=== PATIENT | male | born 1970 | race Caucasian/White ===

== ENCOUNTER 2017-04-14 04:34 | Emergency (ER) | payer SELFPAY ==
[2017-04-14 04:45] VITALS: BP 131/69; PULSE 137; RESP 18; TEMP 97.8; O2SAT 97
[2017-04-14] MEDS ORDERED: TDAP Vaccine 0.5 mL Syr IM ONE (04:57)
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
== END 2017-04-14 06:15 ==
LOC: H.ER 04:34
DX: S61.214A Laceration without foreign body of right ring finger without damage to nail, initial encounter (principal); T14.8 Other injury of unspecified body region; Y04.1XXA Assault by human bite, initial encounter; Y92.89 Other specified places as the place of occurrence of the external cause

== ENCOUNTER 2017-04-27 18:38 | Emergency (ER) | payer SELFPAY ==
[2017-04-27 18:49] VITALS: BP 127/76; PULSE 86; RESP 18; TEMP 98.4; O2SAT 98
--- NOTE | 2017-04-27 18:53 | ED PDOC ---
HPI: Wound Care - HPI Time Seen by Provider: 04/27/17 18:45 Chief Complaint (Nursing): Suture/Staple Removal Chief Complaint (Provider): Suture/Staple Removal History Per: Patient Exam Limitations: no limitations Onset/Duration Of Symptoms: Mins (prior to arrival ) Additional Complaint(s): Owen Cary, 47 year old male presents to the ED for suture removal on his right 5th digit. The patient states he visited the emergency room previously on 04/14/17 for suture placement on wound to right 5th digit. The patient's wound was sutured and he was administered antibiotics. PMD: None provided Past Medical History Reviewed: Historical Data, Nursing Documentation, Vital Signs Vital Signs: Last Vital Signs Temp 98.4 F 04/27/17 18:44 Pulse 86 04/27/17 18:44 Resp 18 04/27/17 18:44 BP 127/76 04/27/17 18:44 Pulse Ox 98 04/27/17 18:44 - Medical History PMH: Denies: Diabetes, Hepatitis, HIV, HTN, Chronic Kidney Disease, Seizures, Sexually Transmitted Disease - Family History Family History: States: No Known Family Hx - Social History Current smoker - smoking cessation education provided: Yes Alcohol: Other Drugs: Denies - Home Medications Home Medications: Ambulatory Orders Medication Instructions Recorded Amoxicillin/Clavulanate [Augmentin 1 tab PO BID #14 tab 04/14/17 875 MG-125 MG] - Allergies Allergies/Adverse Reactions: Allergies Allergy/AdvReac Type Severity Reaction Status Date / Time No Known Allergies Allergy Verified 04/27/17 18:44 Review of Systems ROS Statement: Except As Marked, All Systems Reviewed And Found Negative Constitutional: Positive for: Other (suture removal ) Physical Exam - Reviewed Nursing Documentation Reviewed: Yes Vital Signs Reviewed: Yes - Physical Exam Appears: Positive for: Well, Non-toxic, No Acute Distress Head Exam: Positive for: ATRAUMATIC, NORMAL INSPECTION, NORMOCEPHALIC Extremity: Positive for: Normal ROM. Negative for: Swelling, Other (sutures intact; no erythema; no wound dehiscence) Neurologic/Psych: Positive for: Alert, Oriented - ECG O2 Sat by Pulse Oximetry: 98 (RA) Pulse Ox Interpretation: Normal Medical Decision Making Medical Decision Making: Impression: Suture Removal Plan: * Sutures removed without complications. Of note, the patient did not take his antibiotics as told. Discussed with patient to return to the emergency room for follow up. Scribe Attestation: Documented by Luz Charlton, acting as a scribe for Rosalia Ni PA-C. Provider Scribe Attestation: All medical record entries made by the Scribe were at my direction and personally dictated by me. I have reviewed the chart and agree that the record accurately reflects my personal performance of the history, physical exam, medical decision making, and the department course for this patient. I have also personally directed, reviewed, and agree with the discharge instructions and disposition. Disposition - Clinical Impression Clinical Impression: Removal of suture - Patient ED Disposition Is Patient to be Admitted: No Counseled Patient/Family Regarding: Need For Followup - Disposition Disposition: Routine/Home Disposition Time: 14:12 Condition: STABLE Instructions: Chronic Wound Care (ED)
== END 2017-04-27 18:55 | disposition home or self-care (01) ==
LOC: H.ER 18:38
DX: Z48.02 Encounter for removal of sutures (principal)